=== PATIENT | female | born 1970 | race Caucasian/White ===

== ENCOUNTER 2023-05-24 18:36 | Emergency (ER) | payer BC, MEDICARE, SELFPAY ==
[2023-05-24] VITALS (34 sets, daily range): BP systolic 123–158; BP diastolic 65–86; PULSE 69–89; RESP 14–26; TEMP 37.2; O2SAT 92–99; BMI 37.8
--- NOTE | 2023-05-24 19:04 | XR_ITS ---
The [address] [address] Patient Name: JAMI MARTINEZ MRN: [id number] date: 1970 Sex: F Assigned Patient Location: ER Current Patient Location: ER Accession/Order Number: [id number] Exam Date: 05/24/2023 19:33 Report Date: 05/24/2023 20:37 At the request of: AYLIN JIMENEZ Procedure: XR chest 1V EXAM: XR chest 1V HISTORY: right sided neck pain COMPARISON: 03/30/2014 TECHNIQUE: Frontal view of the chest. FINDINGS: No focal consolidations or pleural effusions. Cardiomediastinal silhouette is unremarkable. Visualized osseous structures are unremarkable. XR/XR chest 1V IMPRESSION: No acute disease. Electronically authenticated by: TURNER ANGEL Date: 05/24/2023 20:37
--- NOTE | 2023-05-24 19:05 | CT_ITS ---
The [place] [id number] Patient Name: JAMI MARTINEZ MRN: [id number] date: 1970 Sex: F Assigned Patient Location: ER Current Patient Location: ER Accession/Order Number: [id number] Exam Date: 05/24/2023 19:35 Report Date: 05/24/2023 20:50 At the request of: AYLIN JIMENEZ Procedure: CT head/brain wo con EXAMINATION: CT head/brain wo con, 05/24/2023 7:35 PM EDT HISTORY: Dizziness COMPARISON: None. TECHNIQUE: CT scan of the head was performed without IV contrast. CT dose reduction technique was used, including Automated Exposure Control. FINDINGS: BRAIN PARENCHYMA/CSF SPACES: Ventricles are normal in size for age. There is a cavum septum pellucidum. This study is suboptimal for evaluation of intracranial hemorrhage due to motion at the level of the skull base. This results in multiple areas of high density including the left temporal lobe (series 5, image 10). PARANASAL SINUSES: Clear. SKULL BASE AND CALVARIUM: Normal. EXTRACRANIAL SOFT TISSUES: Normal. CT/CT head/brain wo con IMPRESSION: Limited study due to motion which results in areas of high density noted in the temporal lobes bilaterally as well as the cerebellum. This limits evaluation for intracranial hemorrhage.. Consider repeat study or MRI there is clinical concern for acute hemorrhage. Electronically authenticated by: TURNER ANGEL Date: 05/24/2023 20:50
--- NOTE | 2023-05-24 19:07 | ECG_ITS ---
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
--- NOTE | 2023-05-24 19:09 | ED_ITS ---
Documented by User: MARIANA Robison 05/24/23 21:07 HPI - General Adult General Chief complaint: Ear Stated complaint: DIZZINESS, EAR PAIN, Time Seen by Provider: 05/24/23 18:54 Source: patient Mode of arrival: walk-in Limitations: no limitations History of Present Illness HPI narrative: patient is a 53-year-old female presents to the Emergency Room with concerns of right ear and neck pain. Patient states symptoms started on Thursday, has had some nasal congestion and postnasal drip. Ear discomfort was seen at urgent care and placed on nasal spray, Capmist DM-(pseudoephedrine)which patient states she has taken before without side effects. Patient notes a lightheaded dizzy feeling denies room spinning, states pain radiates from right side of her ear to her right lateral neck. worse with looking to the right. 5/10 at rest and 10/10 at times burning tightness patient denies headache or visual disturbance. Patient denies any chest pain or shortness of breath. Onset (ago): day(s) (5) Related Data Home Medications Medication Instructions Recorded Confirmed fluticasone propionate 50 1 spray intranasal DAILY PRN nasal 05/24/23 05/24/23 mcg/actuation nasal congestion spray,suspension (24 Hour Allergy Relief) pseudoephedrine 60 mg-DM 15 1 tab PO Q6H 05/24/23 05/24/23 mg-guaifenesin 400 mg tablet (Capmist DM) rosuvastatin 10 mg tablet (Crestor) 10 mg PO DAILY 05/24/23 05/24/23 Previous Rx's Medication Instructions Recorded azithromycin 250 mg tablet See Rx Instructions PO .COMPLEX #6 05/25/23 (Zithromax) tabs loratadine 5 mg-pseudoephedrine ER 1 tab PO DAILY PRN allergy 05/25/23 120 mg tablet,extended symptoms #20 tabs release,12hr (Claritin-D 12 Hour) meclizine 25 mg chewable tablet 25 mg PO TID PRN dizziness #20 tabs 05/25/23 (Antivert) Allergies Allergy/AdvReac Type Severity Reaction Status Date / Time No Known Drug Allergies Allergy Verified 05/24/23 18:46 Review of Systems ROS Constitutional Denies: fever or chills Eyes Denies: change in vision or blurry vision Ears, nose, mouth, and throat Reports: neck pain; Denies: throat pain, throat swelling, difficulty swallowing or mouth pain Cardiovascular Denies: chest pain or palpitations Respiratory Denies: shortness of breath, cough or wheezing Gastrointestinal Denies: abdominal pain, nausea or vomiting Genitourinary Denies: painful urination Musculoskeletal Denies: back pain, neck pain or extremity pain Integumentary/Breast Denies: rash Neurological Reports: headache and dizziness; Denies: numbness in extremities, weakness in extremities, lack of coordination, vertigo, confusion, behavioral changes, slurred speech, difficulty communicating thoughts, seizure-like activity or involuntary movements Psychiatric Denies: anxiety Endocrine Denies: excessive urination Hematologic/Lymphatic Denies: easy bruising Allergic/Immunologic Denies: hives Exam Narrative Exam Narrative: Vital signs and nurses notes reviewed. The patient is not hypoxic. General: The patient appears well and in no apparent distress. Patient is resting comfortably on cart. Skin: Warm, dry, no pallor noted. The patient has no evidence of rash, petechiae, or purpura noted. Head: Normocephalic, atraumatic, no temporal arterial tenderness Neck: Supple, trachea mid-line, no lymphadenopathy. No meningeal signs. No nuchal rigidity.no carotid bruit positive pain to the right SCM with looking to the right, no symptoms with looking to the left. Midline neck tenderness Eye: Pupils are equal, round and reactive to light, EOMI Ears, Nose, Mouth, and Throat: Oral mucosa is moist, TMs are clear bilaterally, no hemotympanum noted.no auricle or tragal tenderness, no mastoid tenderness. Cardiovascular: Regular Rate and Rhythm Respiratory: Patient is in no distress, no accessory muscle use, lungs are clear to auscultation, no wheezing, rales or rhonchi Back: non-tender, no CVA tenderness Musculoskeletal: normal ROM, no tenderness, no swelling, normal strength 5/5. Normal pulses to radial 2+ bilaterally and 2+ at DP and PT bilaterally and symmetrically. GI: Normal bowel sounds, no tenderness to palpation, no masses appreciated. No rebound, guarding, or rigidity noted. 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 The patient is not ataxic. The patient has normal speech. The patient has normal coordination. . Normal motor and sensory observed.negative Marisabel-Hallpike, negative Romberg's Psychiatric: Cooperative Constitutional Vital Signs, click to edit/add: Last Vital Signs Temp 98.9 F 05/24/23 18:41 Pulse 71 05/25/23 00:30 Resp 22 05/25/23 00:30 BP 114/81 05/25/23 00:00 Pulse Ox 96 05/25/23 00:30 O2 Del Method Room Air 05/24/23 18:41 Course Vital Signs Vital signs: Vital Signs Temperature 98.9 F 05/24/23 18:41 Pulse Rate 71 05/24/23 18:41 Respiratory Rate 18 05/24/23 18:41 Blood Pressure 158/81 H 05/24/23 18:41 Pulse Oximetry 99 05/24/23 18:41 Oxygen Delivery Method Room Air 05/24/23 18:41 Temperature 98.9 F 05/24/23 18:41 Pulse Rate 71 05/25/23 00:30 Respiratory Rate 22 05/25/23 00:30 Blood Pressure 114/81 05/25/23 00:00 Pulse Oximetry 96 05/25/23 00:30 Oxygen Delivery Method Room Air 05/24/23 18:41 Medical Decision Making MDM Narrative Medical decision making narrative: patient presents with symptoms similar to torticollis without palpable pain to the right lateral neck. We discussed her dizziness described as being on a boat, denies room spinning, she is on medication that may cause this sensation by side effect. Patient reports she has not felt this way in the past and has been dealing with symptoms since Thursday. Focal neurological deficit appreciated. patient reevaluated, noted that she is feeling better after IV Toradol, aware that we are waiting on thyroid and CT head report. limited study concerning for motion artifact with CT head. Personally reviewed and only noted on two slices. Case discussed with Dr. Rivera and given neck pain, ambiguity of CT head and dizziness recommend CTA HEAD and NECK for further evaluation. Lab Data Labs: Lab Results 05/24/23 05/24/23 05/24/23 Range/Units 18:52 19:25 19:50 WBC 8.2 (4.0-11.0) 10^3/uL RBC 4.73 (4.20-5.40) 10^6/uL Hgb 13.4 (12.0-16.0) g/dL Hct 40.2 (36.0-48.0) % MCV 85.0 (81.0-99.0) fL MCH 28.3 (26.7-34.0) pg MCHC 33.3 (29.9-35.2) g/dL RDW 12.7 (11.0-15.0) % Plt Count 230 (150-450) 10^3/uL MPV 10.8 (9.5-13.5) fL Neut % (Auto) 67.1 (43.0-75.0) % Lymph % (Auto) 23.8 (20.5-60.0) % Randall % (Auto) 5.9 (1.7-12.0) % Eos % (Auto) 2.1 (0.9-7.0) % Baso % (Auto) 0.7 (0.2-2.0) % Neut # (Auto) 5.5 (1.4-6.5) 10^3/uL Lymph # (Auto) 2.0 (1.2-3.8) 10^3/uL Randall # (Auto) 0.5 (0.3-0.8) 10^3/uL Eos # (Auto) 0.2 (0.0-0.7) 10^3/uL Baso # (Auto) 0.1 (0.0-0.1) 10^3/uL Abs Immat Gran (auto) 0.03 (0.00-0.03) 10^3/uL Imm/Tot Granulo (auto) 0.4 (0.0-0.5) % ESR 19 (<=30) mm/hr Sodium 139 (136-145) mmol/L Potassium 3.7 (3.5-5.1) mmol/L Chloride 103 (98-107) mmol/L Carbon Dioxide 26.8 (21.0-32.0) mmol/L Anion Gap 12.9 BUN 11.0 (7.0-18.0) mg/dL Creatinine 0.69 (0.55-1.02) mg/dL Est GFR ( Amer) >60 (>=60) Est GFR (Non-Af Amer) >60 (>=60) BUN/Creatinine Ratio 15.9 Glucose 108 H (74-106) mg/dL Calcium 8.6 (8.5-10.1) mg/dL Total Bilirubin 0.4 (0.2-1.0) mg/dL AST 7 L (15-37) U/L ALT 27 (14-59) U/L Alkaline Phosphatase 73 (46-116) U/L Troponin I High Sens <4.0 L (4.0-51.3) pg/mL Total Protein 7.8 (6.4-8.2) g/dL Albumin 4.2 (3.4-5.0) g/dL Globulin 3.6 g/dL Albumin/Globulin Ratio 1.2 TSH 1.493 (0.358-3.740) uIU/mL Urine Color Lt. yellow (YELLOW) Urine Clarity Clear (CLEAR) Urine pH 6.5 (5.0-9.0) Ur Specific [place] <=1.005 A (1.005-1.025) Urine Protein Negative (NEG/TRACE) mg/dL Urine Glucose (UA) Negative (NEGATIVE) mg/dL Urine Ketones Negative (NEGATIVE) mg/dL Urine Occult Blood Negative (NEGATIVE) Urine Nitrite Negative (NEGATIVE) Urine Bilirubin Negative (NEGATIVE) Urine Urobilinogen 0.2 (0.2-1.0) EU/dL Ur Leukocyte Esterase Trace A (NEGATIVE) Urine RBC 0-2 (0-2) #/HPF Urine WBC 0-2 A (NONE SEEN) #/HPF Ur Squamous Epith Cells Few A (NONE/RARE) #/LPF Urine Crystals Seen A (None Seen) #/HPF Amorphous Sediment Rare Urine Bacteria None seen (NONE SEEN) #/HPF Urine Casts None seen (NONE SEEN) #/LPF Urine Mucus None seen (NONE SEEN) Ur Culture Indicated? No Streptococcus Screen Negative Imaging Data CT scan - head: Radiologist's impression: Procedure: CT head/brain wo con EXAMINATION: CT head/brain wo con, 05/24/2023 7:35 PM EDT HISTORY: Dizziness COMPARISON: None. TECHNIQUE: CT scan of the head was performed without IV contrast. CT dose reduction technique was used, including Automated Exposure Control. FINDINGS: BRAIN PARENCHYMA/CSF SPACES: Ventricles are normal in size for age. There is a cavum septum pellucidum. This study is suboptimal for evaluation of intracranial hemorrhage due to motion at the level of the skull base. This results in multiple areas of high density including the left temporal lobe (series 5, image 10). PARANASAL SINUSES: Clear. SKULL BASE AND CALVARIUM: Normal. EXTRACRANIAL SOFT TISSUES: Normal. IMPRESSION: Limited study due to motion which results in areas of high density noted in the temporal lobes bilaterally as well as the cerebellum. This limits evaluation for intracranial hemorrhage.. Consider repeat study or MRI there is clinical concern for acute hemorrhage. Electronically authenticated by: TURNER ANGEL Date: 05/24/2023 20:50 Chest x-ray: Radiologist's impression: MRN: [id number] date: 1970 Sex: F Assigned Patient Location: ER Current Patient Location: ER Accession/Order Number: [id number] Exam Date: 05/24/2023 19:33 Report Date: 05/24/2023 20:37 At the request of: AYLIN JIMENEZ Procedure: XR chest 1V EXAM: XR chest 1V HISTORY: right sided neck pain COMPARISON: 03/30/2014 TECHNIQUE: Frontal view of the chest. FINDINGS: No focal consolidations or pleural effusions. Cardiomediastinal silhouette is unremarkable. Visualized osseous structures are unremarkable. XR/XR chest 1V IMPRESSION: No acute disease. Electronically authenticated by: TURNER ANGEL Date: 05/24/2023 20:37 ECG Data Attestation: I personally reviewed and interpreted this ECG as follows: Interpretation: EKG interpretation: Emergency Department physician interpretation, normal sinus rhythm 83 bpm , no ectopy, no ST segment elevation, normal axis. Discharge Plan Discharge Chief Complaint: Ear Clinical Impression: Neck pain on right side, Dizziness, Myringitis, bullous Patient Disposition: Home, Self-Care Time of Disposition Decision: 00:00 Condition: Good Mode of Transportation: Private Vehicle Prescriptions / Home Meds: New Claritin-D 12 Hour 5-120 mg tablet extended release 12 hr 1 tab PO DAILY PRN (Reason: allergy symptoms) Qty: 20 0RF meclizine [Antivert] 25 mg tablet,chewable 25 mg PO TID PRN (Reason: dizziness) Qty: 20 0RF azithromycin [Zithromax] 250 mg tablet See Rx Instructions .ROUTE .COMPLEX Qty: 6 0RF Rx Instructions: For 250 mg dose pack: take 500 mg today (day 1), then 250 mg for 4 days (days 2-5) No Action rosuvastatin [Crestor] 10 mg tablet 10 mg PO DAILY Capmist DM 60-15-400 mg tablet 1 tab PO Q6H fluticasone propionate [24 Hour Allergy Relief] 50 mcg/actuation spray,suspension 1 spray intranasal DAILY PRN (Reason: nasal congestion) Rx Instructions: administer into each nostril Instructions: Vertigo (ED), Acute Neck Pain (ED) Stand Alone Forms: Portal Instructions Referrals: MAXIMINO ROBERTS [Primary Care Provider] - 1 week Discharge Date/Time: 05/25/23 00:35 Documented by User: Debra Rivera MD 05/25/23 06:06 HPI - General Adult General Chief complaint: Ear Stated complaint: DIZZINESS, EAR PAIN, Time Seen by Provider: 05/24/23 18:54 Related Data Home Medications Medication Instructions Recorded Confirmed fluticasone propionate 50 1 spray intranasal DAILY PRN nasal 05/24/23 05/24/23 mcg/actuation nasal congestion spray,suspension (24 Hour Allergy Relief) pseudoephedrine 60 mg-DM 15 1 tab PO Q6H 05/24/23 05/24/23 mg-guaifenesin 400 mg tablet (Capmist DM) rosuvastatin 10 mg tablet (Crestor) 10 mg PO DAILY 05/24/23 05/24/23 Previous Rx's Medication Instructions Recorded azithromycin 250 mg tablet See Rx Instructions PO .COMPLEX #6 05/25/23 (Zithromax) tabs loratadine 5 mg-pseudoephedrine ER 1 tab PO DAILY PRN allergy 05/25/23 120 mg tablet,extended symptoms #20 tabs release,12hr (Claritin-D 12 Hour) meclizine 25 mg chewable tablet 25 mg PO TID PRN dizziness #20 tabs 05/25/23 (Antivert) Allergies Allergy/AdvReac Type Severity Reaction Status Date / Time No Known Drug Allergies Allergy Verified 05/24/23 18:46 Exam Constitutional Vital Signs, click to edit/add: Last Vital Signs Temp 98.9 F 05/24/23 18:41 Pulse 71 05/25/23 00:30 Resp 22 05/25/23 00:30 BP 114/81 05/25/23 00:00 Pulse Ox 96 05/25/23 00:30 O2 Del Method Room Air 05/24/23 18:41 Course Vital Signs Vital signs: Vital Signs Temperature 98.9 F 05/24/23 18:41 Pulse Rate 71 05/24/23 18:41 Respiratory Rate 18 05/24/23 18:41 Blood Pressure 158/81 H 05/24/23 18:41 Pulse Oximetry 99 05/24/23 18:41 Oxygen Delivery Method Room Air 05/24/23 18:41 Temperature 98.9 F 05/24/23 18:41 Pulse Rate 71 05/25/23 00:30 Respiratory Rate 22 05/25/23 00:30 Blood Pressure 114/81 05/25/23 00:00 Pulse Oximetry 96 05/25/23 00:30 Oxygen Delivery Method Room Air 05/24/23 18:41 Medical Decision Making MDM Narrative Medical decision making narrative: patient presents with symptoms similar to torticollis without palpable pain to the right lateral neck. We discussed her dizziness described as being on a boat, denies room spinning, she is on medication that may cause this sensation by side effect. Patient reports she has not felt this way in the past and has been dealing with symptoms since Thursday. Focal neurological deficit appreciated. patient reevaluated, noted that she is feeling better after IV Toradol, aware that we are waiting on thyroid and CT head report. limited study concerning for motion artifact with CT head. Personally reviewed and only noted on two slices. Case discussed with Dr. Rievra and given neck pain, ambiguity of CT head and dizziness recommend CTA HEAD and NECK for further evaluation. 60 reports are unremarkable. The patient has some bullous myringitis. Patient is a diabetic, I will not give her any steroids. Patient was given Antivert, and Zithromax. She is to follow-up with primary care doctor. Attending physician attestation I have seen and evaluated this patient. I have reviewed the mid-level provider?s documentation medical decision making and treatment plan. I agree with the mid- level provider?s assessment, and plan. At this time the patient is without objective evidence of an acute process requiring hospitalization or inpatient management. The patient has remained he modynamically stable. No additional indication for emergent studies at this time. I answered all questions. Discussed discharge instructions including standard anticipatory guidance and what should prompt a return to the emergency department, including if they get worse are not getting better or develops any new or concerning symptoms. I've given them specific time frame in which to follow-up, and who to follow-up with. The patient demonstrates understanding. Patient is nontoxic and stable for discharge with outpatient follow-up. This note was created with the assistance of a speech recognition program. Although the intention is to generate documents that actually reflects the content of the visit, no guarantees can be provided that every mistake has been identified and corrected by editing. Lab Data Labs: Lab Results 05/24/23 05/24/23 05/24/23 Range/Units 18:52 19:25 19:50 WBC 8.2 (4.0-11.0) 10^3/uL RBC 4.73 (4.20-5.40) 10^6/uL Hgb 13.4 (12.0-16.0) g/dL Hct 40.2 (36.0-48.0) % MCV 85.0 (81.0-99.0) fL MCH 28.3 (26.7-34.0) pg MCHC 33.3 (29.9-35.2) g/dL RDW 12.7 (11.0-15.0) % Plt Count 230 (150-450) 10^3/uL MPV 10.8 (9.5-13.5) fL Neut % (Auto) 67.1 (43.0-75.0) % Lymph % (Auto) 23.8 (20.5-60.0) % Randall % (Auto) 5.9 (1.7-12.0) % Eos % (Auto) 2.1 (0.9-7.0) % Baso % (Auto) 0.7 (0.2-2.0) % Neut # (Auto) 5.5 (1.4-6.5) 10^3/uL Lymph # (Auto) 2.0 (1.2-3.8) 10^3/uL Randall # (Auto) 0.5 (0.3-0.8) 10^3/uL Eos # (Auto) 0.2 (0.0-0.7) 10^3/uL Baso # (Auto) 0.1 (0.0-0.1) 10^3/uL Abs Immat Gran (auto) 0.03 (0.00-0.03) 10^3/uL Imm/Tot Granulo (auto) 0.4 (0.0-0.5) % ESR 19 (<=30) mm/hr Sodium 139 (136-145) mmol/L Potassium 3.7 (3.5-5.1) mmol/L Chloride 103 (98-107) mmol/L Carbon Dioxide 26.8 (21.0-32.0) mmol/L Anion Gap 12.9 BUN 11.0 (7.0-18.0) mg/dL Creatinine 0.69 (0.55-1.02) mg/dL Est GFR ( Amer) >60 (>=60) Est GFR (Non-Af Amer) >60 (>=60) BUN/Creatinine Ratio 15.9 Glucose 108 H (74-106) mg/dL Calcium 8.6 (8.5-10.1) mg/dL Total Bilirubin 0.4 (0.2-1.0) mg/dL AST 7 L (15-37) U/L ALT 27 (14-59) U/L Alkaline Phosphatase 73 (46-116) U/L Troponin I High Sens <4.0 L (4.0-51.3) pg/mL Total Protein 7.8 (6.4-8.2) g/dL Albumin 4.2 (3.4-5.0) g/dL Globulin 3.6 g/dL Albumin/Globulin Ratio 1.2 TSH 1.493 (0.358-3.740) uIU/mL Urine Color Lt. yellow (YELLOW) Urine Clarity Clear (CLEAR) Urine pH 6.5 (5.0-9.0) Ur Specific [place] <=1.005 A (1.005-1.025) Urine Protein Negative (NEG/TRACE) mg/dL Urine Glucose (UA) Negative (NEGATIVE) mg/dL Urine Ketones Negative (NEGATIVE) mg/dL Urine Occult Blood Negative (NEGATIVE) Urine Nitrite Negative (NEGATIVE) Urine Bilirubin Negative (NEGATIVE) Urine Urobilinogen 0.2 (0.2-1.0) EU/dL Ur Leukocyte Esterase Trace A (NEGATIVE) Urine RBC 0-2 (0-2) #/HPF Urine WBC 0-2 A (NONE SEEN) #/HPF Ur Squamous Epith Cells Few A (NONE/RARE) #/LPF Urine Crystals Seen A (None Seen) #/HPF Amorphous Sediment Rare Urine Bacteria None seen (NONE SEEN) #/HPF Urine Casts None seen (NONE SEEN) #/LPF Urine Mucus None seen (NONE SEEN) Ur Culture Indicated? No Streptococcus Screen Negative Discharge Plan Discharge Chief Complaint: Ear Clinical Impression: Neck pain on right side, Dizziness, Myringitis, bullous Patient Disposition: Home, Self-Care Time of Disposition Decision: 00:00 Condition: Good Mode of Transportation: Private Vehicle Prescriptions / Home Meds: New Claritin-D 12 Hour 5-120 mg tablet extended release 12 hr 1 tab PO DAILY PRN (Reason: allergy symptoms) Qty: 20 0RF meclizine [Antivert] 25 mg tablet,chewable 25 mg PO TID PRN (Reason: dizziness) Qty: 20 0RF azithromycin [Zithromax] 250 mg tablet See Rx Instructions .ROUTE .COMPLEX Qty: 6 0RF Rx Instructions: For 250 mg dose pack: take 500 mg today (day 1), then 250 mg for 4 days (days 2-5) No Action rosuvastatin [Crestor] 10 mg tablet 10 mg PO DAILY Capmist DM 60-15-400 mg tablet 1 tab PO Q6H fluticasone propionate [24 Hour Allergy Relief] 50 mcg/actuation spray,suspension 1 spray intranasal DAILY PRN (Reason: nasal congestion) Rx Instructions: administer into each nostril Instructions: Vertigo (ED), Acute Neck Pain (ED) Stand Alone Forms: Portal Instructions Referrals: MAXIMINO ROBERTS [Primary Care Provider] - 1 week Discharge Date/Time: 05/25/23 00:35
[2023-05-24 19:19] LABS: Basophils Absolute Auto 0.1 10^3/uL (0.0-0.1); Basophils Percent Auto 0.7 % (0.2-2.0); Eosinophils Absolute Auto 0.2 10^3/uL (0.0-0.7); Eosinophils Percent Auto 2.1 % (0.9-7.0); Hematocrit 40.2 % (36.0-48.0); Hemoglobin 13.4 g/dL (12.0-16.0); Immature Granulocytes Abs Auto 0.03 10^3/uL (0.00-0.03); Immature Granulocytes Pct Auto 0.4 % (0.0-0.5); Lymphocytes Percent Auto 23.8 % (20.5-60.0); Mean Corpuscular HGB Conc 33.3 g/dL (29.9-35.2); Mean Corpuscular Hemoglobin 28.3 pg (26.7-34.0); Mean Platelet Volume 10.8 fL (9.5-13.5); Monocytes Absolute Auto 0.5 10^3/uL (0.3-0.8); Monocytes Percent Auto 5.9 % (1.7-12.0); Neutrophils Absolute Auto 5.5 10^3/uL (1.4-6.5); Neutrophils Percent Auto 67.1 % (43.0-75.0); Platelet Count 230 10^3/uL (150-450); Red Blood Count 4.73 10^6/uL (4.20-5.40); Red Cell Distribution Width 12.7 % (11.0-15.0); White Blood Count 8.2 10^3/uL (4.0-11.0)
[2023-05-24 19:24] LABS: Erythrocyte Sedimentation Rate 19 mm/hr (<=30)
[2023-05-24] MEDS: KETOROLAC TROMETHAMINE 30 MG/ML VIAL IVP (19:25)
[2023-05-24] MEDS: ONDANSETRON PF 4 MG/2 ML VIAL IV (19:25)
[2023-05-24] MEDS: 0.9 % SODIUM CHLORIDE 1,000 ML 999 ML IV (19:26)
[2023-05-24 19:31] LABS: Alanine Aminotransferase 27 U/L (14-59); Albumin Globulin Ratio 1.2; Albumin Level 4.2 g/dL (3.4-5.0); Alkaline Phosphatase 73 U/L (46-116); Anion Gap 12.9; Aspartate Amino Transferase 7 U/L (15-37); BUN Creatinine Ratio 15.9; Bilirubin Total 0.4 mg/dL (0.2-1.0); Calcium 8.6 mg/dL (8.5-10.1); Carbon Dioxide 26.8 mmol/L (21.0-32.0); Chloride 103 mmol/L (98-107); Estimated GFR (African America >60 (>=60); Estimated GFR (Non-African Ame >60 (>=60); Globulin 3.6 g/dL; Glucose 108 mg/dL (74-106); Potassium 3.7 mmol/L (3.5-5.1); Sodium 139 mmol/L (136-145); Total Protein 7.8 g/dL (6.4-8.2)
[2023-05-24 19:33] LABS: Troponin I High Sensitivity <4.0 pg/mL (4.0-51.3)
[2023-05-24 19:37] LABS: Bilirubin Urine NEGATIVE (NEGATIVE); Blood Urine NEGATIVE (NEGATIVE); Clarity Urine CLEAR (CLEAR); Color Urine LT. YELLOW (YELLOW); Glucose Urine UA NEGATIVE (NEGATIVE); Ketones Urine NEGATIVE (NEGATIVE); Leukocyte Esterase Urine TRACE (NEGATIVE); Nitrite Urine NEGATIVE (NEGATIVE); Protein Urine NEGATIVE (NEG/TRACE); Specific Gravity Urine <=1.005 (1.005-1.025); Urobilinogen Urine 0.2 EU/dL (0.2-1.0); pH Urine 6.5 (5.0-9.0)
[2023-05-24 19:38] LABS: Urine Microscopic Indicated YES
[2023-05-24 19:39] LABS: Thyroid Stimulating Hormone 1.493 uIU/mL (0.358-3.740)
[2023-05-24 19:43] LABS: Bacteria Urine NONE SEEN #/HPF (NONE SEEN); Crystals Seen? Seen #/HPF (None Seen); Mucus Urine NONE SEEN (NONE SEEN); RBC Urine 0-2 #/HPF (0-2); Squamous Epithelial Cell Urine FEW #/LPF (NONE/RARE); WBC Urine 0-2 #/HPF (NONE SEEN)
--- NOTE | 2023-05-24 19:43 | PC.NURSE ---
IV inserted by previous nurse
[2023-05-24 19:44] LABS: Amorphous Sediment Urine RARE; Cast Seen? NONE SEEN #/LPF (NONE SEEN); Urine Culture Indicated NO
[2023-05-24 20:09] LABS: Internal Control Within Normal Limits; Strep A Antigen Screen Negative
--- NOTE | 2023-05-24 21:03 | CT_ITS ---
The [address] [address] Patient Name: JAMI MARTINEZ MRN: [id number] date: 1970 Sex: F Assigned Patient Location: ER Current Patient Location: ER Accession/Order Number: [id number] Exam Date: 05/24/2023 21:25 Report Date: 05/24/2023 23:25 At the request of: AYLIN JIMENEZ Procedure: CT angio head CT angio head, CT angio neck INDICATION:53 years old; dizziness TECHNIQUE: CT angiogram of the head and neck was performed. Coronal, sagittal and 3-D reformats were created and reviewed. IV contrast Omnipaque 350 100mL. No complications . Carotid stenosis measurements were made according to the NASCET criteria. Ionizing radiation dose reduced via iterative reconstruction/FBP blend and body size kV/mA adjustment. COMPARISON: Head CT dated 05/24/2023 at 7:39 PM. FINDINGS: NECK FINDINGS: AORTIC ARCH: Normal origin of the innominate, left common carotid and left subclavian arteries. ANTERIOR CIRCULATION: Common carotid arteries are patent. Carotid bifurcations are patent. Cervical ICA are patent up to the skull base. No stenosis or thrombus is seen. No dissection. POSTERIOR CIRCULATION: The V1, V2, and V3 segments of vertebral arteries are bilaterally patent. No stenosis or thrombus is seen. No dissection is noted. DEVELOPMENTAL ANOMALIES: None. OTHER: No thyroid nodule or adenopathy. HEAD BRAIN: Please see the report of the noncontrast head CT. ANTERIOR CIRCULATION: The intrapetrous, intracavernous, supraclinoid ICA are bilaterally patent. Intracranial termini are patent. MERCY patent bilaterally. MCA patent bilaterally. No stenosis or thrombus. No large vessel occlusion. No aneurysm is seen. The distal distributions are bilaterally symmetric POSTERIOR CIRCULATION: The V4 segments are patent. PICA patent. Basilar artery and basilar tip are patent. SCA patent bilaterally. Hypoplastic P1 segment on the left with takeoff of the left SLICE CUTTING MACHINE OPERATOR. Right SLICE CUTTING MACHINE OPERATOR arises from the basilar tip. Distal SLICE CUTTING MACHINE OPERATOR distributions are symmetric. No large vessel occlusion. DEVELOPMENTAL ANOMALIES: takeoff of the left SLICE CUTTING MACHINE OPERATOR. OTHER: No pathologic enhancing mass lesions are seen. The study does not adequately evaluate the intracranial veins. CT/CT angio head IMPRESSION: 1. Intracranial and extracranial vessels demonstrate no stenosis, thrombus, dissection, aneurysm, or large vessel occlusion. 2. No pathologic enhancement. If there is continued suspicion for infarction, then MRI with diffusion imaging would be more sensitive to examine this patient. Electronically authenticated by: ROQUE BARR Date: 05/24/2023 23:25
--- NOTE | 2023-05-24 21:03 | CT_ITS ---
The [address] [address] Patient Name: JAMI MARTINEZ MRN: [id number] date: 1970 Sex: F Assigned Patient Location: ER Current Patient Location: ER Accession/Order Number: [id number] Exam Date: 05/24/2023 21:25 Report Date: 05/24/2023 23:25 At the request of: AYLIN JIMENEZ Procedure: CT angio neck CT angio head, CT angio neck INDICATION:53 years old; dizziness TECHNIQUE: CT angiogram of the head and neck was performed. Coronal, sagittal and 3-D reformats were created and reviewed. IV contrast Omnipaque 350 100mL. No complications . Carotid stenosis measurements were made according to the NASCET criteria. Ionizing radiation dose reduced via iterative reconstruction/FBP blend and body size kV/mA adjustment. COMPARISON: Head CT dated 05/24/2023 at 7:39 PM. FINDINGS: NECK FINDINGS: AORTIC ARCH: Normal origin of the innominate, left common carotid and left subclavian arteries. ANTERIOR CIRCULATION: Common carotid arteries are patent. Carotid bifurcations are patent. Cervical ICA are patent up to the skull base. No stenosis or thrombus is seen. No dissection. POSTERIOR CIRCULATION: The V1, V2, and V3 segments of vertebral arteries are bilaterally patent. No stenosis or thrombus is seen. No dissection is noted. DEVELOPMENTAL ANOMALIES: None. OTHER: No thyroid nodule or adenopathy. HEAD BRAIN: Please see the report of the noncontrast head CT. ANTERIOR CIRCULATION: The intrapetrous, intracavernous, supraclinoid ICA are bilaterally patent. Intracranial termini are patent. MERCY patent bilaterally. MCA patent bilaterally. No stenosis or thrombus. No large vessel occlusion. No aneurysm is seen. The distal distributions are bilaterally symmetric POSTERIOR CIRCULATION: The V4 segments are patent. PICA patent. Basilar artery and basilar tip are patent. SCA patent bilaterally. Hypoplastic P1 segment on the left with takeoff of the left SUPERVISOR COKE HANDLING. Right SUPERVISOR COKE HANDLING arises from the basilar tip. Distal SUPERVISOR COKE HANDLING distributions are symmetric. No large vessel occlusion. DEVELOPMENTAL ANOMALIES: takeoff of the left SUPERVISOR COKE HANDLING. OTHER: No pathologic enhancing mass lesions are seen. The study does not adequately evaluate the intracranial veins. CT/CT angio neck IMPRESSION: 1. Intracranial and extracranial vessels demonstrate no stenosis, thrombus, dissection, aneurysm, or large vessel occlusion. 2. No pathologic enhancement. If there is continued suspicion for infarction, then MRI with diffusion imaging would be more sensitive to examine this patient. Electronically authenticated by: ROQUE BARR Date: 05/24/2023 23:25
[2023-05-25] VITALS: BP 114/81; PULSE 78; RESP 17; O2SAT 94
[2023-05-25 00:10] VITALS: PULSE 70; RESP 15; O2SAT 96
[2023-05-25 00:20] VITALS: PULSE 68; RESP 15; O2SAT 96
[2023-05-25 00:30] VITALS: PULSE 71; RESP 22; O2SAT 96
--- NOTE | 2023-05-25 01:00 | PC.NURSE ---
saline lock dc/d Site clear and cathlon intact
== END 2023-05-25 00:35 | disposition home or self-care (01) ==
PROVIDERS: Personal Emergency Response Attendant; Emergency Provider Emergency Medicine; PCP Physician Assistant
DX: R42 Dizziness and giddiness (principal); M54.2 Cervicalgia; H73.019 Bullous myringitis, unspecified ear
CPT/HCPCS: 36415; 70450; 70496; 70498; 71045; 80053; 81001; 84443; 84484; 85025; 85652; 87070; 87880; 93005; 96374; 96375; 99285; Q9967